=== PATIENT | female | born 1975 | race Caucasian/White ===

== ENCOUNTER → 2018-05-23 | Outpatient (CLI) | payer OTHER ==
[~2018-05-23] MED LIST: ACET-3017 PO; LEVO1IUD3 IY
--- NOTE | 2018-05-23 11:18 | RADIOLOGY IMAGING REPORT ---
FACILITY: [facility] PATIENT NAME: Jessi Rausch : 1975 MR: [id number] V: [id number] EXAM DATE: ORDERING PHYSICIAN: KYRIE FOUNTAIN TECHNOLOGIST: Location: [facility] [place] Patient: Jessi Rausch : 1975 Visit/Account:[id number] Date of Sevice: 05/23/2018 Exam type: HAND LIMITED RIGHT History: Right fourth finger pain, jammed finger March Comparison: None. Findings: Two views of the right hand were submitted there is no evidence of acute fracture or dislocation in t he visualized bones of the right hand. No radiopaque soft tissue foreign body is seen. There is sub tle soft tissue swelling about the PIP joint of the right fourth finger IMPRESSION: 1. Subtle soft tissue swelling about the PIP joint of the right fourth finger although no underlying fracture or dislocation seen Report Dictated By: Татьяна Guevara MD at 05/23/2018 11:05 AM Report E-Signed By: Татьяна Guevara MD at 05/23/2018 11:13 AM WSN:ELY
== END ==
LOC: RAD 09:40
PROVIDERS: ATTEND Nurse Practitioner Family
DX: M79.644 Pain in right finger(s) (principal)